=== PATIENT | female | born 1975 | race Caucasian/White ===

== ENCOUNTER → 2019-08-16 11:38 | Outpatient (BNVA) | payer MEDICARE, MEDICAID, SELFPAY | PROVIDERS: Family Provider Family Medicine; PCP Family Medicine; Visit Provider Social Worker | DX: F33.2 Major depressive disorder, recurrent severe without psychotic features (principal); F41.1 Generalized anxiety disorder; F43.12 Post-traumatic stress disorder, chronic | CPT/HCPCS: 90834 ==

== ENCOUNTER → 2019-09-07 09:30 | Outpatient (BNVA) | payer MEDICARE, MEDICAID, SELFPAY | PROVIDERS: Family Provider Family Medicine; PCP Family Medicine; Visit Provider Social Worker | DX: F33.2 Major depressive disorder, recurrent severe without psychotic features (principal); F41.1 Generalized anxiety disorder; F43.12 Post-traumatic stress disorder, chronic | CPT/HCPCS: 90834 ==

== ENCOUNTER → 2019-10-03 09:29 | Outpatient (BNVA) | payer MEDICARE, MEDICAID, SELFPAY | PROVIDERS: Family Provider Family Medicine; PCP Family Medicine; Visit Provider Social Worker | DX: F33.2 Major depressive disorder, recurrent severe without psychotic features (principal); F41.1 Generalized anxiety disorder; F43.12 Post-traumatic stress disorder, chronic | CPT/HCPCS: 90834 ==

== ENCOUNTER → 2019-10-17 10:44 | Outpatient (BNVA) | payer MEDICARE, MEDICAID, SELFPAY | PROVIDERS: Family Provider Family Medicine; PCP Family Medicine; Visit Provider Social Worker | DX: F33.2 Major depressive disorder, recurrent severe without psychotic features (principal); F41.1 Generalized anxiety disorder; F43.12 Post-traumatic stress disorder, chronic | CPT/HCPCS: 90834 ==

== ENCOUNTER 2020-10-12 14:43 | Outpatient (CLI) | payer MEDICARE, MEDICAID, SELFPAY ==
--- NOTE | 2020-10-12 14:47 | MR_ITS ---
WS: [id number] MRI HEAD WITHOUT CONTRAST TECHNIQUE: Sagittal T1, T2 axial, T2 axial FLAIR, axial and coronal T1 images, axial susceptibility w eighted imaging, axial diffusion weighted images, and coronal T2 images were obtained. CLINICAL INFORMATION: TRAUMATIC INJURY OF HEAD;MIGRAINE W/O AURA;W/O STATUS MIGRAI COMPARISON: None. FINDINGS: Some images are degraded due to susceptibility artifact A few tiny foci of T2 hyperintensity in the frontal subcortical white matter nonspecific but can be s een with migraine headaches. No suspicious intracranial signal abnormalities. Normal posterior fossa. Normal vascular flow voids at the skull base. No extra-axial fluid collections. No evidence of mass or mass effect. Paranasal sinuses and mastoid air cells well aerated. No hemosiderin on susceptibly weighted images. Diffusion images are degraded due to susceptibility ar tifact. Normal cerebellar tonsils. Visualized upper cervical spine is normal. Normal optic chiasm and pituitary infundibulum. Temporal lobes and hippocampal formations are normal in appearance. Normal cavernous sinuses and Meckel's cave. MR/MR head wo con* [id number] IMPRESSION: 1. A few tiny foci of T2 hyperintensity in the subcortical white matter mainly in the frontal lobes nonspecific but can be seen with migraine headaches. 2. No suspicious intracranial signal abnormalities. 3. No extra-axial fluid collections. No evidence of mass or mass effect. 4. Normal optic chiasm and pituitary infundibulum. 5. Temporal lobes and hippocampal formations are normal in appearance. 6. No hemosiderin on susceptibly weighted images considering artifact. 7. No other significant findings.
== END 2020-10-12 14:44 | disposition home or self-care (01) ==
LOC: RADSHAW 14:44
PROVIDERS: PCP Family Medicine; Visit Provider Family Medicine
DX: S09.90XS Unspecified injury of head, sequela (principal); G43.009 Migraine without aura, not intractable, without status migrainosus; X58.XXXS Exposure to other specified factors, sequela
CPT/HCPCS: 70551

== ENCOUNTER 2020-11-07 09:55 | Outpatient (CLI) | payer MEDICARE, MEDICAID, SELFPAY ==
--- NOTE | 2020-11-07 09:57 | MM_ITS ---
WS: [id number] BILATERAL DIGITAL SCREENING MAMMOGRAPHY WITH CAD CLINICAL INFORMATION: SCREENING HISTORY: Screening mammogram. No current complaints. COMPARISON: TECHNIQUE: Bilateral CC and MLO views. FINDINGS: The breasts are composed of heterogeneous fibroglandular density tissue, which can limit the detectio n of small underlying mass lesions. No suspicious mass, asymmetry, calcifications, or architectural d istortion. No evidence of malignancy. MM/[place] [id number] IMPRESSION: BI-RADS: 1-Negative FOLLOW UP: 1 Year Follow-up Recommend return to annual screening mammography.
== END 2020-11-07 09:56 | disposition home or self-care (01) ==
LOC: RADSHAW 09:56
PROVIDERS: PCP Family Medicine; Visit Provider Family Medicine
DX: Z12.31 Encounter for screening mammogram for malignant neoplasm of breast (principal)
CPT/HCPCS: 77067

== ENCOUNTER → 2021-03-04 11:29 | Outpatient (BNVA) | payer MEDICARE, MEDICAID, SELFPAY | PROVIDERS: PCP Family Medicine; Visit Provider Surgery | DX: Z01.812 Encounter for preprocedural laboratory examination (principal); Z20.822 Contact with and (suspected) exposure to COVID-19 | CPT/HCPCS: 87635 ==

== ENCOUNTER → 2021-03-06 13:56 | Outpatient (BNVA) | payer MEDICARE, MEDICAID, SELFPAY | PROVIDERS: PCP Family Medicine; Visit Provider Surgery | DX: R10.13 Epigastric pain (principal); Z20.822 Contact with and (suspected) exposure to COVID-19 | CPT/HCPCS: 87635 ==

== ENCOUNTER 2021-03-12 06:39 | Day surgery (SDC) | payer MEDICARE, MEDICAID, SELFPAY ==
[2021-03-08 13:48] VITALS: BMI 42.8
[2021-03-12 07:02] VITALS: BP 118/70; PULSE 79; RESP 18; TEMP 36.4; O2SAT 100
--- NOTE | 2021-03-12 07:05 | ANES.PREANE2 ---
Pre-Anesthetic Assessment Pre-Anesthetic Assessment: Height/Weight: Height 1.6 m Weight 109.769 kg Temp Pulse Resp BP Pulse Ox 97.5 F L 79 18 118/70 100 03/12/21 07:02 03/12/21 07:02 03/12/21 07:02 03/12/21 07:02 03/12/21 07:02 Preop Diagnosis: Bleeding per rectum and epigastric pain Proposed Procedure: Operation Date: 03/12/21 08:30 Proposed Procedures p EGD [id number] r14.9 r10.13(Not Applicable) - Hany Schmid MD s Colonoscopy(Not Applicable) - Hany Schmid MD Familial anesthetic complications: none Was Beta Vesna taken within 24 hours: N/A Was Clonidine taken within 24 hours: N/A Last intake: > 8 hrs Social: Social History: No alcohol and No tobacco Exam: Pre-Anes Outpt Exam: alert, oriented x 3, clear to auscultation bilaterally and regular rate & rhythm Airway: MP: 1 Dentition: Other (missing) Pulmonary: Pulmonary: Sleep apnea (cpap) CV/HEM: CV/HEM: HTN Metabolic: Metabolic: Morbid obesity and Thyroid Musc/skel: Musc/skel: Fibromyalgia Neuropsych: Neuropsych: Depression Anesthetic Plan: ASA status: 3 Anesthesia: MAC Risk of > 500 ml blood loss (7ml/kg in children): No PFSH Anesthesia PFSH: Medical History Apnea, sleep Uses C-PAP Endometriosis Patient with prior diagnosis of endometriosis. On hormonal suppression with noncyclical control. Hypertension Hypothyroidism, unspecified Metabolic syndrome Migraine syndrome had Botox in 09/2013 - states has helped a lot. Was seeing Dr. Jaime in the past. Primary fibromyalgia Thyroid nodule Being followed with ultrasound. Surgical History H/O section (06/14/99) Performed by Dr. Blackwell at [facility] in [place], [place] H/O section (09/14/97) Performed by Dr. Renteria at [facility] in [place], [place] History of strabismus surgery (~1981) S/P laparoscopic cholecystectomy (~03/2011) Performed by Dr. Felder in [place], [place] S/P laparoscopic procedure (05/29/09) Laparoscopic SAHIL, cautery of endometriosis. Performed by Dr. Pineda at [facility] in [place], [place]. Surgical findings: 1. Adhesions of the uterus to the anterior abdominal wall and bladder region, 2. Endometrial implants of the left ovary, right and left ovarian fossas, and posterior cul-de-sac. Family History Father Hypertension Hyperlipidemia Suicide Heart disease Mother Hypertension Hyperlipidemia Family history of thyroid problem Grandmother Hypertension Diabetes Hyperlipidemia Heart disease Social History Smoking and tobacco status: never smoked Alcohol intake: never Data Anesthesia Cardiac Studies: No Data to Display
[2021-03-12] MEDS: sodium chloride 0.9% 1,000 ML 30 ML IV (07:23)
[2021-03-12 07:32] LABS: OR HCG Qualitative Urine Negative (Negative)
--- NOTE | 2021-03-12 08:14 | P.HP_ITS ---
Same Day Surgery H&P Indication for Procedure/HPI DATE OF PROCEDURE: March 12, 2021 CHIEF COMPLAINT/INDICATIONFOR SURGICAL PROCEDURE: Blood in stool and abdominal pain PREOP DIAGNOSIS: Bleeding per rectum and epigastric pain PLANNED PROCEDRUE: Operation Date: 03/12/21 08:30 Proposed Procedures p EGD [id number] r14.9 r10.13(Not Applicable) - Hany Schmid MD s Colonoscopy(Not Applicable) - Hany Schmid MD This is a pleasant 45 years old female patient morbidly obese with a current weight 242 pounds and the BMI 43. Patient gives history of intermittent bleeding per rectum and burning epigastric pain that gets worse with any kind of food and gets better when she vomits. Reports that the pain is not being referred and also has been associated with nausea. Patient gives history of irritable bowel syndrome and indigestion. 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 Patient reports her constipation is remarkable as she would go for a whole week without having a bowel movement. She also reports history of anxiety and fibromyalgia. She is currently on CPAP for obesity related obstructive sleep apnea. And reports that her gallbladder is gone. Patient is referred to me for further evaluation potential intervention. Interim history 03/12/2021 Patient comes today for diagnostic EGD and colonoscopy ROS All systems have been reviewed negative except as per the above or per problem list Medications/Allergies* Home Medications Medication Instructions Recorded Confirmed Type erenumab-aooe 140 mg/mL See Rx Instructions SUBCUT .COMPLEX 05/10/20 03/12/21 History subcutaneous auto-injector lamotrigine 25 mg tablet 75 mg PO DAILY 05/10/20 03/12/21 History levothyroxine 25 mcg capsule 25 mcg PO DAILY 05/10/20 03/12/21 History lisinopril 5 mg tablet 5 mg PO DAILY 05/10/20 03/12/21 History lubiprostone 24 mcg capsule 24 mcg PO .COMPLEX 05/10/20 03/08/21 History ondansetron 4 mg oral soluble film 4 mg PO .COMPLEX 05/10/20 03/08/21 History promethazine 25 mg tablet 25 mg PO Q6H PRN 05/10/20 03/08/21 History sumatriptan succinate 100 mg tablet 100 mg PO ONCE PRN tab 05/10/20 03/12/21 History tizanidine 4 mg capsule See Rx Instructions PO BID PRN 05/10/20 03/12/21 History tramadol 50 mg tablet 50 mg PO Q6H PRN 05/10/20 03/12/21 History verapamil 360 mg 24 hr 360 mg PO DAILY 05/10/20 03/12/21 History capsule,extended release vortioxetine 20 mg tablet 20 mg PO DAILY 05/10/20 03/12/21 History Allergies/Adverse Reactions Allergy/AdvReac Type Severity Reaction Status Date / Time clarithromycin [From Biaxin] Allergy itching, Verified 03/12/21 08:24 rash topiramate [From Topamax] Allergy popping Verified 03/12/21 08:24 sensation in her brain Current Medications: Generic Name Dose Route Start Last Admin Trade Name Freq PRN Reason Stop Dose Admin Sodium Chloride 1,000 mls @ 30 mls/hr 03/12/21 07:15 03/12/21 07:23 Sodium Chloride 0.9% IV 03/13/21 07:14 30 mls/hr .Q24H CARMEN Administration Pertinent History/Comorbid Conditions* Medical History (Updated 12/27/20 @ 08:36 by Hany Schmid MD) Apnea, sleep Uses C-PAP Endometriosis Patient with prior diagnosis of endometriosis. On hormonal suppression with noncyclical control. Hypertension Hypothyroidism, unspecified Metabolic syndrome Migraine syndrome had Botox in 09/2013 - states has helped a lot. Was seeing Dr. Jaime in the past. Primary fibromyalgia Thyroid nodule Being followed with ultrasound. Surgical History (Updated 05/12/20 @ 16:45 by Adi Pineda MD) H/O section (06/14/99) Performed by Dr. Blackwell at [facility] in [place], [place] H/O section (09/14/97) Performed by Dr. Renteria at [facility] in [place], [place] History of strabismus surgery (~1981) S/P laparoscopic cholecystectomy (~03/2011) Performed by Dr. Felder in [place], [place] S/P laparoscopic procedure (05/29/09) Laparoscopic SAHIL, cautery of endometriosis. Performed by Dr. Pineda at [facility] in [place], [place]. Surgical findings: 1. Adhesions of the uterus to the anterior abdominal wall and bladder region, 2. Endometrial implants of the left ovary, right and left ovarian fossas, and posterior cul-de-sac. Family History (Updated 05/10/20 @ 07:52 by Jane Molina LPN) Diabetes Grandmother Heart disease Father Grandmother Hyperlipidemia Father Mother Grandmother Suicide Father Family history of thyroid problem Mother Hypertension Father Mother Grandmother Social History Smoking and tobacco status: never smoked Alcohol intake: never Pertinent Exam Findings alert, oriented x 3, clear to auscultation bilaterally, regular rate & rhythm and procedure specific exam findings (Double examination nontender nondistended soft) Recommendations Surgery/Procedure today (EGD and colonoscopy) Other Plans: Plan of care; After thorough history and physical examination and reviewing the chart, plan to perform a diagnostic esophagogastroduodenoscopy and diagnostic colonoscopy with possible biopsy and possible polypectomy. I discussed with the patient in detail the risks,benefits,alternatives and indications.The risk of aspiration, bleeding, soft tissue injury, perforation of the stomach/esophagus/colon and other potential concomitant complications were explained to the patient in details also the potential need for Thoracotomy and or Laproscoy/Laparotomy to repair any related complications including but not limited to colectomy and or Closotomy. The patient understood this well and did agree to proceed. 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
[2021-03-12 09:07] VITALS: BP 126/88; PULSE 81; RESP 16; TEMP 36.1; O2SAT 99
--- NOTE | 2021-03-12 09:10 | ANE.PACU2 ---
Inpatient post-anesthesia follow up: Airway intact: Yes Vital signs: Temperature 97.5 F Pulse Rate 79 Respiratory Rate 18 Blood Pressure 118/70 Pulse Oximetry 100 Oxygen Delivery Me thod Room Air Oxygen Flow Rate Fraction of Inspir ed Oxygen Hydration adequate: Yes Nausea and vomiting: No Pain level: 1 Mental status: Baseline
[2021-03-12 09:21] VITALS: BP 119/91; PULSE 68; RESP 16; O2SAT 99
--- NOTE | 2021-03-12 17:10 | ANE.PACU2 ---
Inpatient post-anesthesia follow up: Airway intact: Yes Vital signs: Temperature 97 F Pulse Rate 68 Respiratory Rate 16 Blood Pressure 119/91 Pulse Oximetry 99 Oxygen Delivery Me thod Nasal Cannula Oxygen Flow Rate 2 Fraction of Inspir ed Oxygen Hydration adequate: Yes Nausea and vomiting: No Pain level: 2 Mental status: Baseline
[2021-03-13 08:54] LABS: H. Pylori / CLO Test Negative
== END 2021-03-12 09:40 | disposition home or self-care (01) ==
PROVIDERS: Anesthesiology; PCP Family Medicine; Visit Provider Surgery
PROC: 0DJ08ZZ Inspection of Upper Intestinal Tract, Via Natural or Artificial Opening Endoscopic (ICD-10-PCS; CPT 43235; principal; 2021-03-12 08:30)
PROC: 0DJD8ZZ Inspection of Lower Intestinal Tract, Via Natural or Artificial Opening Endoscopic (ICD-10-PCS; CPT 45378; 2021-03-12 08:30)
DX: K92.1 Melena (principal); R10.13 Epigastric pain; K21.00 Gastro-esophageal reflux disease with esophagitis, without bleeding; K29.70 Gastritis, unspecified, without bleeding; G47.30 Sleep apnea, unspecified; I10 Essential (primary) hypertension; E03.9 Hypothyroidism, unspecified; M79.7 Fibromyalgia; Z82.49 Family history of ischemic heart disease and other diseases of the circulatory system; Z83.3 Family history of diabetes mellitus; E66.01 Morbid (severe) obesity due to excess calories; Z68.41 Body mass index [BMI] 40.0-44.9, adult
CPT/HCPCS: 43239; 45378; 81025; 84703; 87077; 96360; 96361; J2704; J7030

== ENCOUNTER → 2021-05-13 11:07 | Outpatient (BNVA) | payer MEDICARE, MEDICAID, SELFPAY | PROVIDERS: PCP Family Medicine; Visit Provider Obstetrics & Gynecology | DX: Z00.00 Encounter for general adult medical examination without abnormal findings (principal) | CPT/HCPCS: 87624 ==

== ENCOUNTER → 2021-11-13 13:07 | Outpatient (BNVA) | payer MEDICARE, MEDICAID, SELFPAY | PROVIDERS: PCP Family Medicine; Visit Provider Surgery | DX: E66.01 Morbid (severe) obesity due to excess calories (principal); Z68.41 Body mass index [BMI] 40.0-44.9, adult; E03.9 Hypothyroidism, unspecified | CPT/HCPCS: 99213 ==

== ENCOUNTER 2022-05-30 17:00 | Outpatient (CLI) | payer MEDICARE, MEDICAID, SELFPAY ==
[2022-05-30 17:54] LABS: Hepatitis C Virus Antibody Non-Reactive (Nonreactive)
[2022-05-30 18:40] LABS: HIV 1 & 2 Antibody Non-Reactive (Non-Reactiv); HIV 1 & 2 Antigen Non-Reactive (Non-Reactiv)
== END 2022-05-30 17:01 | disposition home or self-care (01) ==
LOC: LAB 17:06
PROVIDERS: PCP Family Medicine; Visit Provider Obstetrics & Gynecology
DX: Z30.9 Encounter for contraceptive management, unspecified (principal)
CPT/HCPCS: 86803; 87491; 87591; 87661; 87806

== ENCOUNTER 2022-06-24 08:06 | Outpatient (CLI) | payer MEDICARE, MEDICAID, SELFPAY ==
--- NOTE | 2022-06-24 08:16 | MM_ITS ---
WS: [id number] VIEWS: MLO and CC views both breasts. 3D digital tomosynthesis is also included in this exam. Comparison made with prior exam of 09/01/2017, 11/07/2020.. Findings: There was no sign of mass, architectural distortion or suspicious calcification in either breast. He terogeneously dense MM/[place] [id number] Impression: BI-RADS: 2-Benign FOLLOW-UP: 1 Year Follow-up This mammogram was also analyzed by the Computer Aided Detection System R2 Imag e Orthopedic Surgeon.
== END 2022-06-24 08:07 | disposition home or self-care (01) ==
PROVIDERS: PCP Family Medicine; Visit Provider Obstetrics & Gynecology
DX: Z12.31 Encounter for screening mammogram for malignant neoplasm of breast (principal)
CPT/HCPCS: 77063; 77067

== ENCOUNTER → 2022-07-16 14:37 | Outpatient (BNVA) | payer MEDICARE, MEDICAID, SELFPAY | PROVIDERS: PCP Family Medicine; Visit Provider Obstetrics & Gynecology | DX: N93.9 Abnormal uterine and vaginal bleeding, unspecified (principal) | CPT/HCPCS: 84443; 85025 ==

== ENCOUNTER → 2022-07-28 07:56 | Outpatient (BNVA) | payer MEDICARE, MEDICAID, SELFPAY | PROVIDERS: PCP Family Medicine; Visit Provider Obstetrics & Gynecology | DX: N93.9 Abnormal uterine and vaginal bleeding, unspecified (principal) | CPT/HCPCS: 76830 ==

== ENCOUNTER → 2023-04-29 11:07 | Outpatient (BNVA) | payer MEDICARE, MEDICAID, SELFPAY | PROVIDERS: PCP Family Medicine; Visit Provider Nurse Practitioner Family | DX: L82.1 Other seborrheic keratosis (principal); L57.8 Other skin changes due to chronic exposure to nonionizing radiation; L81.4 Other melanin hyperpigmentation; D18.01 Hemangioma of skin and subcutaneous tissue; L57.0 Actinic keratosis | CPT/HCPCS: 17000; 99213 ==

== ENCOUNTER → 2023-06-04 13:00 | Outpatient (BNVA) | payer MEDICARE, MEDICAID, SELFPAY | PROVIDERS: PCP Family Medicine; Visit Provider Nurse Practitioner Women's Health | DX: E89.40 Asymptomatic postprocedural ovarian failure (principal); Z79.890 Hormone replacement therapy; Z11.3 Encounter for screening for infections with a predominantly sexual mode of transmission | CPT/HCPCS: 86592; 86803; 87340; 87806 ==

== ENCOUNTER → 2023-07-26 17:39 | Outpatient (BNVA) | payer MEDICARE, MEDICAID, SELFPAY | PROVIDERS: PCP Nurse Practitioner Women's Health; Visit Provider Emergency Medicine | DX: R39.9 Unspecified symptoms and signs involving the genitourinary system (principal); N10 Acute pyelonephritis | CPT/HCPCS: 81000; 87086 ==

== ENCOUNTER → 2024-04-25 08:12 | Outpatient (BNVA) | payer MEDICARE, OTHER, SELFPAY | PROVIDERS: PCP Nurse Practitioner Women's Health; Visit Provider Nurse Practitioner Family | DX: L65.0 Telogen effluvium (principal); L57.0 Actinic keratosis; L82.1 Other seborrheic keratosis; D18.01 Hemangioma of skin and subcutaneous tissue; L57.8 Other skin changes due to chronic exposure to nonionizing radiation | CPT/HCPCS: 17000; 99213 ==

== ENCOUNTER → 2024-06-10 15:57 | Outpatient (BNVA) | payer MEDICARE, MEDICAID, SELFPAY | PROVIDERS: PCP Nurse Practitioner Women's Health; Visit Provider Nurse Practitioner Women's Health | DX: Z11.3 Encounter for screening for infections with a predominantly sexual mode of transmission (principal) | CPT/HCPCS: 86592; 86803; 87340; 87491; 87591; 87806 ==

== ENCOUNTER 2024-06-16 13:41 | Outpatient (CLI) | payer MEDICARE, MEDICAID, SELFPAY ==
--- NOTE | 2024-06-16 13:40 | MM_ITS ---
WS: [id number] BILATERAL SCREENING DIGITAL TOMOSYNTHESIS MAMMOGRAM WITH CAD HISTORY: SCREENING COMPARISON: 06/24/2022, 11/07/2020 Bilateral CC and MLO views with tomosynthesis and synthetic mammography submitted. Computer aided det ection analyzed. Breast composition: The breasts are heterogeneously dense, which may obscure small masses. No suspici ous masses, microcalcifications or architectural distortion. MM/MM scr BI tomosynthesis [id number] IMPRESSION: BI-RADS: 2 - Benign FOLLOW UP: 1 Year Follow-up
== END 2024-06-16 13:42 | disposition home or self-care (01) ==
PROVIDERS: PCP Nurse Practitioner Family; Visit Provider Nurse Practitioner Family
DX: Z12.31 Encounter for screening mammogram for malignant neoplasm of breast (principal); R92.333 Mammographic heterogeneous density, bilateral breasts
CPT/HCPCS: 77063; 77067